=== PATIENT | female | born 1990 | race Two or more races ===

== ENCOUNTER → 2023-03-27 08:02 | Outpatient (CLI) | payer OTHER | END | disposition home or self-care (01) | LOC: PRENATAL 08:02 | PROVIDERS: ATTEND Obstetrics & Gynecology Maternal & Fetal Medicine | DX: O35.9XX0 Maternal care for (suspected) fetal abnormality and damage, unspecified, not applicable or unspecified (principal); O35.3XX0 Maternal care for (suspected) damage to fetus from viral disease in mother, not applicable or unspecified; Z14.8 Genetic carrier of other disease; Z3A.20 20 weeks gestation of pregnancy ==

== ENCOUNTER 2023-08-03 15:30 | Inpatient (IN) | payer OTHER ==
[~2023-08-03] VITALS: Ht 160 cm; Wt 87.5 kg
[2023-08-03 17:33] LABS: HEMATOCRIT 36.8 % (36.0-45.00); HEMOGLOBIN 12.6 g/dL (12.0-15.00); MEAN CELL VOLUME 87.9 fL (80.00-100.00); MEAN CORPUSCULAR HEMOGLOBIN 30.1 pg (27.00-32.0); MEAN CORPUSCULAR HGB CONC 34.3 g/dl (32.0-36.0); PLATELET COUNT 205 K/uL (150-450); RED BLOOD COUNT 4.19 M/uL (4.00-6.00); RED CELL DISTRIBUTION WIDTH 13.9 % (11.5-14.5); URINE APPEARANCE Clear; URINE BILIRRUBIN Negative (NEGATIVE); URINE BLOOD Negative; URINE COLOR Yellow; URINE GLUCOSE Negative (NEGATIVE); URINE LEUKOCYTE Large; URINE NITRATE Negative; URINE PROTEIN Negative (NEGATIVE); URINE UROBILINOGEN 0.2 E.U./dl
[2023-08-03 17:37] LABS: URINE EPITHELIAL CELLS 54.1 uL (0.0-38.8); URINE WBC 155.9 uL (0.0-23.2)
[2023-08-03 17:47] LABS: INR < 0.93; PARTIAL THROMBOPLASTIN TIME 26.9 SECONDS (22.0-34.0); PROTHROMBIN TIME 9.8 SECONDS (9.0-11.5)
[2023-08-03 17:52] LABS: ALBUMIN 2.6 gm/dL (3.4-5.0); BILIRUBIN TOTAL 0.31 mg/dL (0.3-1.2); CALCIUM 8.7 mg/dL (8.5-10.1); CREATININE SERUM 0.64 mg/dL (0.55-1.02); GFR 106.22; GLOBULINA 3.3 G/DL (2.4-3.5); POTASSIUM 3.95 mEq/L (3.5-5.1); TOTAL PROTEIN 5.9 gm/dL (6.4-8.2)
[2023-08-03 18:18] LABS: URINE MUCUS SCANT
[2023-08-08] MEDS ORDERED: AMPICILLIN SODIUM 2,000 MG VIAL ONE (09:16)
[2023-08-08] MEDS ORDERED: AMPICILLIN SODIUM 2,000 MG VIAL IV ONE (10:00)
[2023-08-08] MEDS ORDERED: MISOPROSTOL 25 MCG/4 ML GEL.W.APPL ONE (10:58)
[2023-08-08] MEDS ORDERED: MISOPROSTOL 25 MCG/4 ML GEL.W.APPL VAG ONE ×2 (11:00→17:00)
[2023-08-08] MEDS ORDERED: PRENATABS RX T1 EACH PO (12:28)
[2023-08-08] MEDS ORDERED: AMPICILLIN SODIUM 1,000 MG VIAL IV SCH (13:00)
[2023-08-09] MEDS ORDERED: MISOPROSTOL 50 MCG TABLET ONE (06:17)
[2023-08-09] MEDS ORDERED: OXYTOCIN 20 UNITS/500ML RL PIGGYBAG IV ONE (06:21)
[2023-08-09] MEDS ORDERED: OXYTOCIN 500 ML IV SCH (07:00)
[2023-08-09] MEDS ORDERED: ONDANSETRON HCL 2 MG/ML VIAL IV ONE (12:00)
[2023-08-09] MEDS ORDERED: OXYTOCIN 20 UNITS/1000ML RL PIGGYBAG IV ONE (16:29)
[2023-08-09] MEDS ORDERED: CHLORHEXIDINE GLUCONATE 120 ML BOTTLE TP SCH (17:30)
[2023-08-09] MEDS ORDERED: OxyCODONE HCL/APAP UD (PERCOCET) PO PRN (17:30)
[2023-08-09] MEDS ORDERED: OXYTOCIN 1,000 ML IV SCH (17:30)
[2023-08-09] MEDS ORDERED: ERYTHROMYCIN BASE 1 GM TUBE OP SCH (17:30)
[2023-08-09] MEDS ORDERED: IBUprofen 400 MG TABLET PO PRN (17:30)
[2023-08-09] MEDS ORDERED: LIDOCAINE HCL 1% 10ML VIAL IJ ONE (18:00)
[2023-08-10 06:05] LABS: HEMATOCRIT 27.7 % (36.0-45.00); HEMOGLOBIN 9.6 g/dL (12.0-15.00); MEAN CELL VOLUME 89.2 fL (80.00-100.00); MEAN CORPUSCULAR HEMOGLOBIN 30.8 pg (27.00-32.0); MEAN CORPUSCULAR HGB CONC 34.6 g/dl (32.0-36.0); PLATELET COUNT 174 K/uL (150-450); RED BLOOD COUNT 3.11 M/uL (4.00-6.00); RED CELL DISTRIBUTION WIDTH 13.4 % (11.5-14.5)
[2023-08-10 13:18] LABS: HEMATOCRIT 31.6 % (36.0-45.00); MEAN CELL VOLUME 90.4 fL (80.00-100.00); MEAN CORPUSCULAR HGB CONC 33.6 g/dl (32.0-36.0); PLATELET COUNT 212 K/uL (150-450); RED BLOOD COUNT 3.49 M/uL (4.00-6.00); RED CELL DISTRIBUTION WIDTH 13.8 % (11.5-14.5)
[2023-08-10 13:38] LABS: HEMOGLOBIN 10.6 g/dL (12.0-15.00); MEAN CORPUSCULAR HEMOGLOBIN 30.3 pg (27.00-32.0)
== END 2023-08-11 15:01 | disposition home or self-care (01) | DRG 807 ==
LOC: LDR 08-08 07:39 → OB/GYN 08-09 16:09
PROVIDERS: Obstetrics & Gynecology; Specialist; ADMIT Student in an Organized Health Care Education/Training Program; ATTEND Student in an Organized Health Care Education/Training Program
PROC: 3E0P7VZ Introduction of Hormone into Female Reproductive, Via Natural or Artificial Opening (ICD-10-PCS; 2023-08-08)
PROC: 4A1HXCZ Monitoring of Products of Conception, Cardiac Rate, External Approach (ICD-10-PCS; 2023-08-08)
PROC: 10E0XZZ Delivery of Products of Conception, External Approach (ICD-10-PCS; principal; 2023-08-09)
PROC: 0HQ9XZZ Repair Perineum Skin, External Approach (ICD-10-PCS; 2023-08-09)
PROC: 0UQG7ZZ Repair Vagina, Via Natural or Artificial Opening (ICD-10-PCS; 2023-08-09)
PROC: 0UQMXZZ Repair Vulva, External Approach (ICD-10-PCS; 2023-08-09)
PROC: 3E033VJ Introduction of Other Hormone into Peripheral Vein, Percutaneous Approach (ICD-10-PCS; 2023-08-09)
DX: O70.0 First degree perineal laceration during delivery (principal); Z37.0 Single live birth; O71.82 Other specified trauma to perineum and vulva; O99.824 Streptococcus B carrier state complicating childbirth; Z3A.39 39 weeks gestation of pregnancy; Z20.822 Contact with and (suspected) exposure to COVID-19